=== PATIENT | male | born 1995 | race Hispanic/Latino ===

== ENCOUNTER 2019-01-28 14:43 | Emergency (ER) | payer OTHER ==
[~2019-01-28] VITALS: Ht 167.6 cm; Wt 68.2 kg
[2019-01-28 16:54] LABS: BASO % 0.3 % (0.0-1.0); EOS # 0.1 10^3/uL (0.0-0.5); EOS % 0.5 % (0.0-3.0); HEMATOCRIT 48.9 % (42.0-52.0); HEMOGLOBIN 16.4 g/dl (13.5-17.5); LYMPH # 1.8 10^3/uL (1.5-5.0); LYMPH % 13.8 % (24.0-44.0); MEAN CORPUSCULAR HGB CONC 33.5 g/dl (32.0-36.5); MEAN CORPUSCULAR VOLUME 86.5 fl (80.0-96.0); MONO # 1.2 10^3/uL (0.0-0.8); MONO % 9.3 % (0.0-5.0); NEUTROPHILS # 9.7 10^3/uL (1.5-8.5); NEUTROPHILS % 75.7 % (36.0-66.0); PLATELET COUNT, AUTOMATED 218 10^3/uL (150-450); RED BLOOD COUNT 5.65 10^6/uL (4.30-6.10); WHITE BLOOD COUNT 12.8 10^3/uL (4.0-10.0)
[2019-01-28 17:16] LABS: ERYTHROCYTE SEDIMENTATION RATE 6 mm/hr (0-15)
[2019-01-28 17:30] LABS: ALBUMIN 4.7 GM/DL (3.2-5.2); ALT/SGPT 65 U/L (12-78); BILIRUBIN,DIRECT 0.2 MG/DL (0.0-0.2); BILIRUBIN,TOTAL 1.1 MG/DL (0.2-1.0); BLOOD UREA NITROGEN 12 MG/DL (7-18); C REACTIVE PROTEIN QUANTITATIV 4.55 MG/DL (0.00-0.30); CALCIUM LEVEL 9.9 MG/DL (8.5-10.1); CARBON DIOXIDE LEVEL 29 MEQ/L (21-32); CHLORIDE LEVEL 103 MEQ/L (98-107); CREATININE FOR GFR 1.02 MG/DL (0.70-1.30); GLOMERULAR FILTRATION RATE > 60.0 (>60); GLUCOSE, FASTING 85 MG/DL (70-100); SODIUM LEVEL 139 MEQ/L (136-145); TOTAL PROTEIN 8.6 GM/DL (6.4-8.2)
--- NOTE | 2019-01-28 19:59 | REPVR ---
PROCEDURE INFORMATION: Exam: US Abdomen Limited Exam date and time: 01/28/2019 7:01 PM Age: 24 years old Clinical history: Mass, lump, or swelling; Llq; Additional info: Red, swollen area to llq R/O cellulitis vs abscess TECHNIQUE: Imaging protocol: Real-time ultrasound of the abdomen with image documentation. Examination is focused on the region of clinical interest. COMPARISON: No relevant prior studies available. FINDINGS: Soft tissues: There is very severe thickening and edema at the left lower quadrant of the abdomen consistent with severe cellulitis and infection and inflammation throughout the subcutaneous layer. This areas thickened to 2.5 cm. Within the central portion of the edematous area there is an irregular collection of fluid which measures 1 cm and suspicious for a small abscess. IMPRESSION: Massive soft tissue swelling at the left lower quadrant of the abdomen involving the skin and subcutaneous layer. This is consistent with subcutaneous edema and infection along with cellulitis. 1 cm probable irregular abscess within the central portion of this swelling. Electronically signed by: Jonathan Peralta On 01/28/2019 19:59:34 PM
[2019-01-28] MEDS ORDERED: BACT800T5 PO (20:13)
[2019-01-28] MEDS ORDERED: BACTRIM 160MG/800MG DS TAB PO ONE (20:15)
[2019-01-28 20:34] VITALS: BP 135/64
--- NOTE | 2019-01-30 16:14 | ED PDOC ---
Post-Departure Follow-Up celestino bella faxed forma report of abdominal us for fu Marsha Blue MD Jan 30, 2019 16:13
== END 2019-01-28 20:35 | disposition home or self-care (01) ==
LOC: EEVIPCON 14:43 → M ED 14:43
DX: L03.319 Cellulitis of trunk, unspecified (principal); L02.211 Cutaneous abscess of abdominal wall